=== PATIENT | male | born 1985 | race Caucasian/White ===

== ENCOUNTER 2018-11-20 11:17 | Inpatient (IN) | payer MEDICAID ==
[~2018-11-20] VITALS: Ht 167.6 cm; Wt 80.0 kg
[2018-11-20] MEDS ORDERED: morphine 4 MG/ML VIAL IV STA ×2 (11:35→13:28)
[2018-11-20] MEDS ORDERED: SOD CHLORIDE 0.9% 1,000 ML IV STA (11:35)
[2018-11-20] MEDS ORDERED: ONDANSETRON 4 MG INJ IV STA (11:35)
[2018-11-20] MEDS ORDERED: FAMOTIDINE 20 MG INJ IV STA (11:35)
[2018-11-20] MEDS ORDERED: SOD CHLORIDE 0.9% 1,000 ML IV ONE (13:50)
[2018-11-20] MEDS ORDERED: PIPER-TAZO 3.375 GM IV (PMX) 100 ML IVPB ONE (14:00)
--- NOTE | 2018-11-20 14:09 | ERD ---
ER Documentation Chief Complaint Chief Complaint AP WITH VOMITING SNCE LAST NIGHT HPI 33-year-old otherwise healthy male with 2-day history of mid abdominal pain and vomiting nonbilious nonbloody. Denies fever chills. Denies lower abdominal pain, urinary complaints. ROS All systems reviewed and are negative except as per history of present illness. Allergies Allergies: Coded Allergies: No Known Allergy (Unverified , 11/20/18) PMhx/Soc Medical and Surgical Hx: pt denies Medical Hx, pt denies Surgical Hx Hx Alcohol Use: No Hx Substance Use: No Hx Tobacco Use: No Physical Exam Vitals Vital Signs Date Temp Pulse Resp B/P (MAP) Pulse Ox O2 O2 Flow FiO2 Time Delivery Rate 11/20/18 98.1 82 18 139/82 99 11:20 (101) Physical Exam Const: No acute distress. Uncomfortable due to pain. Head: Atraumatic Eyes: Normal Conjunctiva ENT: Normal External Ears, Nose and Mouth. Neck: Full range of motion. No meningismus. Resp: Clear to auscultation bilaterally Cardio: Regular rate and rhythm, no murmurs Abd: Soft, no saskia tenderness at McBurney's point no Rapp sign. Negative Rovsing's. Mid abdominal tenderness without rebound or masses or patient has difficulty ablating due to pain.., non distended. Normal bowel sounds Skin: No petechiae or rashes Back: No midline or flank tenderness Ext: No cyanosis, or edema Neur: Awake and alert Psych: Normal Mood and Affect Result Diagram: 11/20/18 1147 11/20/18 1147 Results 24 hrs Laboratory Tests Test 11/20/18 11:47 White Blood Count 16.7 10^3/ul Red Blood Count 4.94 10^6/ul Hemoglobin 15.9 g/dl Hematocrit 44.4 % Mean Corpuscular Volume 89.9 fl Mean Corpuscular Hemoglobin 32.2 pg Mean Corpuscular Hemoglobin Concent 35.8 g/dl Red Cell Distribution Width 11.1 % Platelet Count 217 10^3/UL Mean Platelet Volume 12.8 fl Immature Granulocytes % 0.400 % Neutrophils % 91.5 % Lymphocytes % 5.2 % Monocytes % 2.8 % Eosinophils % 0.0 % Basophils % 0.1 % Nucleated Red Blood Cells % 0.0 /100WBC Immature Granulocytes # 0.060 10^3/ul Neutrophils # 15.3 10^3/ul Lymphocytes # 0.9 10^3/ul Monocytes # 0.5 10^3/ul Eosinophils # 0.0 10^3/ul Basophils # 0.0 10^3/ul Nucleated Red Blood Cells # 0.0 10^3/ul Urine Color YELLOW Urine Clarity SLIGHTLY CLOUDY Urine pH 5.0 Urine Specific [place] 1.025 Urine Ketones TRACE mg/dL Urine Nitrite NEGATIVE mg/dL Urine Bilirubin NEGATIVE mg/dL Urine Urobilinogen NEGATIVE mg/dL Urine Leukocyte Esterase NEGATIVE Marcy/ul Urine Microscopic RBC 2 /HPF Urine Microscopic WBC 3 /HPF Urine Mucus FEW /HPF Urine Hemoglobin NEGATIVE mg/dL Urine Glucose 1+ mg/dL Urine Total Protein 1+ mg/dl Sodium Level 142 mmol/L Potassium Level 4.2 mmol/L Chloride Level 99 mmol/L Carbon Dioxide Level 27 mmol/L Anion Gap 16 Blood Urea Nitrogen 14 mg/dl Creatinine 0.82 mg/dl Est Glomerular Filtrat Rate mL/min > 60 mL/min Glucose Level 165 mg/dl Calcium Level 9.7 mg/dl Total Bilirubin 0.6 mg/dl Direct Bilirubin 0.00 mg/dl Indirect Bilirubin 0.6 mg/dl Aspartate Amino Transf (AST/SGOT) 82 IU/L Alanine Aminotransferase (ALT/SGPT) 207 IU/L Alkaline Phosphatase 95 IU/L Total Protein 8.3 g/dl Albumin 4.5 g/dl Globulin 3.80 g/dl Albumin/Globulin Ratio 1.18 Lipase 52 U/L Current Medications Medications Dose Sig/Erasmo Start Time Status Last (Trade) Ordered Route PRN Stop Time Admin Dose Reason Admin Sodium 1,000 ml @ Q1H STAT 11/20/18 DC 11/20/18 Chloride 1,000 mls/hr IV 11:35 11:53 11/20/18 12:34 Morphine 4 mg ONCE STAT 11/20/18 DC 11/20/18 Sulfate IV 11:35 11:53 (morphine) 11/20/18 11:36 Ondansetron 4 mg ONCE STAT 11/20/18 DC 11/20/18 HCl (Zofran IV 11:35 11:53 Inj) 11/20/18 11:36 Famotidine 20 mg ONCE STAT 11/20/18 DC 11/20/18 (Pepcid Iv) IV 11:35 11:53 11/20/18 11:36 Morphine 4 mg ONCE STAT 11/20/18 DC 11/20/18 Sulfate IV 13:28 13:32 (morphine) 11/20/18 13:29 Piperacillin 100 ml @ ONCE ONCE 11/20/18 11/20/18 Sod/ 200 mls/hr IVPB 14:00 13:56 Tazobactam 11/20/18 14:29 Sod Sodium 1,000 ml @ Q0M ONCE 11/20/18 DC 11/20/18 Chloride 0 mls/hr IV 13:50 13:56 11/20/18 13:51 Procedures/MDM IV was obtained. Patient has leukocytosis of 16.7. CMP and lipase normal. Patient given morphine 4 mg IV, Zofran 4 mg IV, Pepcid 20 mg IV 1 L normal saline IV. Patient had recurrent pain and given additional morphine additional 1 L normal saline after CT as well. CT abdomen pelvis noncontrast shows dilated appendix with periappendiceal fat stranding without evidence of perforation or abscess. Patient was given Zosyn 3.375 g IV. Patient presents with 2-day history of vomiting abdominal pain and signs of appendicitis by CT. Arrangements will be made for panel admission and general surgery evaluation as an inpatient. Patient otherwise stable throughout the ER course. Departure Diagnosis: Primary Impression: Appendicitis Appendicitis type: acute appendicitis Acute appendicitis type: unspecified acute appendicitis type Qualified Codes: K35.80 - Unspecified acute appendicitis Condition: SHYANN Jones MD Nov 20, 2018 14:09
[2018-11-20] MEDS ORDERED: HYDROmorphONE 0.5 MG/0.5 ML SYG IV STA (15:20)
[2018-11-20] MEDS ORDERED: NACL 0.9% 3 ML SYG IV SCH (16:30)
[2018-11-20] MEDS ORDERED: ACETAMINOPHEN 325 MG TAB PO PRN (16:30)
[2018-11-20] MEDS ORDERED: ONDANSETRON 4 MG INJ IV PRN ×2 (16:30→22:00)
--- NOTE | 2018-11-20 17:45 | NUR ---
33 years old male , admitted from ER with diagnose of acute appendicitis. Patient is alert, oriented X4. VS stable. Complained of abdominal pain 9/10, medicated with Dilaudid IV and Zofran IV was given for nausea. Patient is ambulatory. Skin assessment done dry and intact, admission photos was taken. Heplock on RAC #[id number]. Keep patient NPO as ordered. Seen by Dr. Pimentel at bedside. Waiting for Dr. Azar for surgical consult. Family at bedside discussed plan of care. Call light within. All needs attended.
[2018-11-20 17:59] VITALS: BP 127/81; PULSE 74; RESP 18
[2018-11-20 18:06] VITALS: Ht 167.6 cm; Wt 80.0 kg
[2018-11-20] MEDS: HYDROmorphONE 0.5 MG/0.5 ML SYG IV PRN (18:41)
--- NOTE | 2018-11-20 19:10 | HP ---
Date/Time of Note Date/Time of Note DATE: 11/20/18 TIME: 19:06 Assessment/Plan VTE Prophylaxis Pharmacological prophylaxis: heparin Lines/Catheters IV Catheter Type (from Nrsg): Peripheral IV Assessment/Plan Hospital Course 33 yo male without pmh presents with appendicitis - Zosyn until surgery - Dr Azar consulted - IVF - Pain control - NPO Result Diagram: 11/20/18 1147 11/20/18 1147 Results 24hrs Laboratory Tests Test 11/20/18 11:47 White Blood Count 16.7 H Red Blood Count 4.94 Hemoglobin 15.9 Hematocrit 44.4 Mean Corpuscular Volume 89.9 Mean Corpuscular Hemoglobin 32.2 Mean Corpuscular Hemoglobin Concent 35.8 Red Cell Distribution Width 11.1 L Platelet Count 217 Mean Platelet Volume 12.8 H Immature Granulocytes % 0.400 Neutrophils % 91.5 H Lymphocytes % 5.2 L Monocytes % 2.8 Eosinophils % 0.0 Basophils % 0.1 Nucleated Red Blood Cells % 0.0 Immature Granulocytes # 0.060 H Neutrophils # 15.3 H Lymphocytes # 0.9 Monocytes # 0.5 Eosinophils # 0.0 Basophils # 0.0 Nucleated Red Blood Cells # 0.0 Prothrombin Time 13.6 Prothrombin Time Ratio 1.1 INR International Normalized Ratio 1.03 Activated Partial Thromboplast Time 26.8 Urine Color YELLOW Urine Clarity SLIGHTLY CLOUDY A Urine pH 5.0 Urine Specific [place] 1.025 Urine Ketones TRACE A Urine Nitrite NEGATIVE Urine Bilirubin NEGATIVE Urine Urobilinogen NEGATIVE Urine Leukocyte Esterase NEGATIVE Urine Microscopic RBC 2 Urine Microscopic WBC 3 Urine Mucus FEW A Urine Hemoglobin NEGATIVE Urine Glucose 1+ H Urine Total Protein 1+ H Sodium Level 142 Potassium Level 4.2 Chloride Level 99 Carbon Dioxide Level 27 Anion Gap 16 H Blood Urea Nitrogen 14 Creatinine 0.82 Est Glomerular Filtrat Rate mL/min > 60 Glucose Level 165 Calcium Level 9.7 Total Bilirubin 0.6 Direct Bilirubin 0.00 Indirect Bilirubin 0.6 Aspartate Amino Transf (AST/SGOT) 82 H Alanine Aminotransferase (ALT/SGPT) 207 H Alkaline Phosphatase 95 Total Protein 8.3 H Albumin 4.5 Globulin 3.80 H Albumin/Globulin Ratio 1.18 Lipase 52 HPI/ROS Admit Date/Time Admit Date/Time Nov 20, 2018 at 16:19 Hx of Present Illness 33 yo male without PMH presents with 3 days of abdominal pain Patient in usual state of health until this developed. Symptoms mostly epigastr ic. Denies clear fevers he says. Had CT in ED showing appendicitis. Has been given zosyn and morphine. Feels better now PMH/Family/Social Past Medical History Medical History: no pertinent history Medications Current Medications Ondansetron HCl (Zofran Inj) 4 mg BRIDGE ORDER PRN IV NAUSEA/VOMITING Last adm inistered on 11/20/18at 18:40; Admin Dose 4 MG; Start 11/20/18 at 16:30; Stop 11/21/18 at 16:29 Acetaminophen (Tylenol Tab) 650 mg ER BRIDGE PRN PO .MILD PAIN 1-3 OR TEMP; Start 11/20/18 at 16:30; Stop 11/21/18 at 16:29 IV Flush (NS 3 ml) 3 ml PER PROTOCOL IV ; Start 11/20/18 at 16:30 Hydromorphone HCl (Dilaudid) 0.5 mg Q4H PRN IV .SEVERE PAIN 7-10 Last administered on 11/20/18at 18:41; Admin Dose 0.5 MG; Start 11/20/18 at 16:30 Piperacillin Sod/ Tazobactam Sod 100 ml @ 200 mls/hr Q8 IVPB ; Start 11/20/18 at 22:00 Coded Allergies: No Known Allergy (Unverified , 11/20/18) Past Surgical History Past Surgical Hx: no surgical history Family History Significant Family History: no pertinent family hx Social History Alcohol Use: none Smoking Status: Never smoker Drug Use: none Exam/Review of Systems Vital Signs Vitals Vital Signs Date Temp Pulse Resp B/P (MAP) Pulse Ox O2 O2 Flow FiO2 Time Delivery Rate 11/20/18 97.7 74 18 127/81 93 Room Air 17:59 (96) Exam Constitutional: alert, oriented, well developed Psych: no complaints, nl mood/affect Head: normocephalic, atraumatic Eyes: nl conjunctiva, EOMI, nl lids, nl sclera, PERRL ENMT: nl external ears & nose, nl lips & teeth, nl nasal mucosa & septum Neck: supple, non-tender Respiratory: clear to auscultation, normal air movement Cardiovascular: regular rate and rhythm, nl pulses Gastrointestinal: soft, nl liver, spleen, non-tender Musculoskeletal: nl extremities to inspection Extremities: normal pulses Neurological: FIRE WATCHER II-XII intact, nl mental status, nl speech, nl strength Skin: nl turgor; No rash or lesions Lymph: nl lymph nodes DEION JETER MD Nov 20, 2018 19:10
[2018-11-20 20:01] VITALS: BP 125/80; PULSE 88; RESP 18
[2018-11-20] MEDS: PIPER-TAZO 3.375 GM IV (PMX) 100 ML IVPB SCH (21:41)
[2018-11-21] VITALS (18 sets, daily range): BP systolic 109–170; BP diastolic 69–91; PULSE 60–91; RESP 9–20
[2018-11-21] MEDS: PIPER-TAZO 3.375 GM IV (PMX) 100 ML IVPB SCH ×2 (05:26→13:39)
--- NOTE | 2018-11-21 06:08 | NUR ---
EOSS: Patient remains stable. Denies any pain this shift. No complains of N/V. Patient kept NPO since midnight. No other complains at this time, patient is scheduled to have procedure this AM at 0730. Consent is ready but patient wants to sign consent at the O.R. Will endorse to morning nurse for continuity of care.
[2018-11-21] MEDS ORDERED: DESFLURANE 15 MIN ONE (07:00)
--- NOTE | 2018-11-21 07:05 | NUR ---
RN Notes: Patient picked up by transport going to O.R. accompanied by partner. No complaints.
--- NOTE | 2018-11-21 07:27 | PREAC ---
Date/Time of Note Date/Time of Note DATE: 11/21/18 TIME: 07: Anesthesia Eval and Record Evaluation Time Pre-Procedure Interview DATE: 11/21/18 TIME: 07:26 Age 33 Sex male NPO: 8 hrs Preoperative diagnosis appendicitis Planned procedure Lap Appy Past Medical History Past Medical History: Includes GI: Obesity Surgery & Anesthesia Issues No known issue Meds Anticoagulation: No Beta Robert within 24 hr: No Reason Beta Robert not given: Pt. not on B-Robert Current Medications Ondansetron HCl (Zofran Inj) 4 mg BRIDGE ORDER PRN IV NAUSEA/VOMITING Last administered on 11/20/18at 18:40; Admin Dose 4 MG; Start 11/20/18 at 16:30; Stop 11/21/18 at 16:29 Acetaminophen (Tylenol Tab) 650 mg ER BRIDGE PRN PO .MILD PAIN 1-3 OR TEMP; Start 11/20/18 at 16:30; Stop 11/21/18 at 16:29 IV Flush (NS 3 ml) 3 ml PER PROTOCOL IV ; Start 11/20/18 at 16:30 Hydromorphone HCl (Dilaudid) 0.5 mg Q4H PRN IV .SEVERE PAIN 7-10 Last administered on 11/20/18at 18:41; Admin Dose 0.5 MG; Start 11/20/18 at 16:30 Piperacillin Sod/ Tazobactam Sod 100 ml @ 200 mls/hr Q8 IVPB Last administered on 11/21/18at 05:26; Admin Dose 200 MLS/HR; Start 11/20/18 at 22:00 Ondansetron HCl (Zofran Inj) 4 mg Q4H PRN IV NAUSEA AND/OR VOMITING; Start 11/20/18 at 22:00 Meds reviewed: Yes Allergies Coded Allergies: No Known Allergy (Unverified , 11/20/18) Allergies Reviewed: Yes Labs/Studies Labs Reviewed: Reviewed by anesthesiologist Result Diagram: 11/21/1842511/21/18425 Laboratory Tests 11/21/18 04:26 test: Negative Studies: ECG Pre-procedure Exam Last vitals Vital Signs Date Temp Pulse Resp B/P (MAP) Pulse Ox O2 O2 Flow FiO2 Time Delivery Rate 11/21/18 98.4 65 18 109/69 97 02:19 (82) 11/20/18 Room Air 17:59 Airway: Adequate mouth opening, Adequate thyromental dist Mallampati: Mallampati II Teeth: Normal Lung: Normal Heart: Normal ASA Physical Status ASA physical status: 2 Emergency: None Planned Anesthetic General/MAC: ETT Nerve block: TAP (bilateral) Pre-operative Attestations Prior to commencing anesthesia and surgery, the patient was re-evaluated, there was verification of: *The patient's identity *The results of appropriate recent lab work and preoperative vital signs *The above evaluation not changing prior to induction *Anesthetic plan, risk benefits, alternative and complications discussed with patient/family; questions answered; patient/family understands, accepts and wishes to proceed. ASHOK RONDON Nov 21, 2018 07:27
[2018-11-21] MEDS ORDERED: DIPHENHYDRAMINE 50 MG INJ IV PRN (07:30)
[2018-11-21] MEDS ORDERED: OXYCODONE/ACETAMINOPHEN (5/325) TAB PO PRN ×3 (07:30→09:00)
[2018-11-21] MEDS ORDERED: METOCLOPRAMIDE 10 MG INJ IV PRN (07:30)
[2018-11-21] MEDS ORDERED: ONDANSETRON 4 MG INJ IV PRN ×2 (07:30→09:00)
[2018-11-21] MEDS ORDERED: MEPERIDINE 25 MG INJ IV PRN (07:30)
[2018-11-21] MEDS ORDERED: ALBUTEROL 0.083% (NEB) 2.5 MG/3 ML AMP HHN PRN (07:30)
[2018-11-21] MEDS ORDERED: FENTAnyl 50 MCG/ML VIAL IV PRN ×2 (07:30)
[2018-11-21] MEDS ORDERED: HYDROmorphONE 1 MG/5 ML IV SYRINGE IV PRN ×2 (07:30)
--- NOTE | 2018-11-21 07:35 | CONS ---
Assessment/Plan Assessment/Plan Assessment/Plan (Daily) Acute appendicitis Plan: Laparoscopic appendectomy, possible open. I have discussed the procedure, outcomes, indications, alternatives and risks in detail to the patient and who have an excellent understanding of the nature of his situation and agreed to the proposed plan of therapy as outlined. Consultation Date/Type/Reason Admit Date/Time Nov 20, 2018 at 16:19 Date of Consultation: Nov 21, 2018 Type of Consult General surgery Reason for Consultation Acute appendicitis Date/Time of Note DATE: 11/21/18 TIME: 07:33 Hx of Present Illness Patient is an otherwise healthy 33-year-old male who presents with a 3-day history of nonspecific abdominal pain which then localized to the right lower quadrant. In the emergency room he was noted to have a tender right lower quadrant, an elevated white blood cell count, and a CT compatible with acute appendicitis. He has had no systemic symptoms. He has had no previous hospitalizations or illnesses. Constitutional: no complaints Eyes: no complaints ENT: no complaints Respiratory: no complaints Cardiovascular: no complaints Gastrointestinal: pain (Right lower quadrant) Genitourinary: no complaints Musculoskeletal: no complaints Skin: no complaints Neurologic: no complaints Endocrine: no complaints Past Medical History Medical History: no pertinent history Medications Current Medications Ondansetron HCl (Zofran Inj) 4 mg BRIDGE ORDER PRN IV NAUSEA/VOMITING Last administered on 11/20/18at 18:40; Admin Dose 4 MG; Start 11/20/18 at 16:30; Stop 11/21/18 at 16:29 Acetaminophen (Tylenol Tab) 650 mg ER BRIDGE PRN PO .MILD PAIN 1-3 OR TEMP; Start 11/20/18 at 16:30; Stop 11/21/18 at 16:29 IV Flush (NS 3 ml) 3 ml PER PROTOCOL IV ; Start 11/20/18 at 16:30 Hydromorphone HCl (Dilaudid) 0.5 mg Q4H PRN IV .SEVERE PAIN 7-10 Last administered on 11/20/18at 18:41; Admin Dose 0.5 MG; Start 11/20/18 at 16:30 Piperacillin Sod/ Tazobactam Sod 100 ml @ 200 mls/hr Q8 IVPB Last administered on 11/21/18at 05:26; Admin Dose 200 MLS/HR; Start 11/20/18 at 22:00 Ondansetron HCl (Zofran Inj) 4 mg Q4H PRN IV NAUSEA AND/OR VOMITING; Start 11/20/18 at 22:00 Hydromorphone HCl (Dilaudid) 0.2 mg PACU PRN IV MILD PAIN 1-3; Start 11/21/18 at 07:30; Status UNV Hydromorphone HCl (Dilaudid) 0.4 mg PACU PRN IV MOD PAIN 4-6; Start 11/21/18 at 07:30; Status UNV Hydromorphone HCl (Dilaudid) 0.6 mg PACU PRN IV SEVERE PAIN 7-10; Start 11/21/18 at 07:30; Status UNV Fentanyl (Sublimaze) 25 mcg PACU ORDER PRN IV MILD PAIN 1-3; Start 11/21/18 at 07:30; Status UNV Fentanyl (Sublimaze) 50 mcg PACU ORDER PRN IV MOD PAIN 4-6; Start 11/21/18 at 07:30; Status UNV Oxycodone/ Acetaminophen (Percocet (5/ 325)) 1 tab PACU ORDER PRN PO .PAIN 1-5; Start 11/21/18 at 07:30; Status UNV Ondansetron HCl (Zofran Inj) 4 mg PACU ORDER PRN IV NAUSEA/VOMITING; Start 11/21/18 at 07:30; Status UNV Metoclopramide HCl (Reglan) 10 mg PACU ORDER PRN IV NAUSEA/VOMITING; Start 11/21/18 at 07:30; Status UNV Albuterol (Proventil 0.083% (Neb)) 2.5 mg PACU ORDER PRN HHN .WHEEZING; Start 11/21/18 at 07:30; Status UNV Meperidine HCl (Demerol) 25 mg PACU ORDER PRN IV .RIGORS; Start 11/21/18 at 07:30; Status UNV Diphenhydramine HCl (Benadryl) 25 mg PACU ORDER PRN IV .PRURITUS; Start 11/21/18 at 07:30; Status UNV Allergies: Coded Allergies: No Known Allergy (Unverified , 11/20/18) Past Surgical History Past Surgical Hx: no surgical history Social History Alcohol Use: none Smoking Status: Never smoker Drug Use: none Exam/Review of Systems Exam Vitals Vital Signs Date Temp Pulse Resp B/P (MAP) Pulse Ox O2 O2 Flow FiO2 Time Delivery Rate 11/21/18 98.4 65 18 109/69 97 02:19 (82) 11/20/18 Room Air 17:59 Intake and Output 11/20/18 11/20/18 11/21/18 1515:00 23:00 07:00 IntakeIntake Total 2100 ml 100 ml 100 ml BalanceBalance 2100 ml 100 ml 100 ml Constitutional: alert, oriented Psych: no complaints Head: normocephalic Eyes: nl conjunctiva ENMT: nl external ears & nose Neck: supple Respiratory: clear to auscultation Cardiovascular: regular rate and rhythm Gastrointestinal: tender (Tender right lower quadrant with guarding but no rebound) Musculoskeletal: nl extremities to inspection Extremities: normal pulses Neurological: PROOFSHEET CORRECTOR II-XII intact Skin: nl turgor Results Result Diagram: 11/21/18 0426 11/21/18 0426 Results 24hrs Laboratory Tests Test 11/20/18 11:47 11/21/18 04:26 White Blood Count 16.7 H 13.5 H Red Blood Count 4.94 4.40 L Hemoglobin 15.9 14.4 Hematocrit 44.4 39.9 L Mean Corpuscular Volume 89.9 90.7 Mean Corpuscular Hemoglobin 32.2 32.7 Mean Corpuscular Hemoglobin Concent 35.8 36.1 Red Cell Distribution Width 11.1 L 11.6 Platelet Count 217 179 Mean Platelet Volume 12.8 H 13.3 H Immature Granulocytes % 0.400 0.400 Neutrophils % 91.5 H 81.6 H Lymphocytes % 5.2 L 12.8 L Monocytes % 2.8 4.7 Eosinophils % 0.0 0.3 Basophils % 0.1 0.2 Nucleated Red Blood Cells % 0.0 0.0 Immature Granulocytes # 0.060 H 0.060 H Neutrophils # 15.3 H 11.0 H Lymphocytes # 0.9 1.7 Monocytes # 0.5 0.6 Eosinophils # 0.0 0.0 Basophils # 0.0 0.0 Nucleated Red Blood Cells # 0.0 0.0 Prothrombin Time 13.6 Prothrombin Time Ratio 1.1 INR International Normalized Ratio 1.03 Activated Partial Thromboplast Time 26.8 Urine Color YELLOW Urine Clarity SLIGHTLY CLOUDY A Urine pH 5.0 Urine Specific [place] 1.025 Urine Ketones TRACE A Urine Nitrite NEGATIVE Urine Bilirubin NEGATIVE Urine Urobilinogen NEGATIVE Urine Leukocyte Esterase NEGATIVE Urine Microscopic RBC 2 Urine Microscopic WBC 3 Urine Mucus FEW A Urine Hemoglobin NEGATIVE Urine Glucose 1+ H Urine Total Protein 1+ H Sodium Level 142 142 Potassium Level 4.2 3.6 Chloride Level 99 104 Carbon Dioxide Level 27 26 Anion Gap 16 H 12 Blood Urea Nitrogen 14 10 Creatinine 0.82 0.79 Est Glomerular Filtrat Rate mL/min > 60 > 60 Glucose Level 165 116 # Calcium Level 9.7 9.3 Total Bilirubin 0.6 0.6 Direct Bilirubin 0.00 0.00 Indirect Bilirubin 0.6 0.6 Aspartate Amino Transf (AST/SGOT) 82 H 45 Alanine Aminotransferase (ALT/SGPT) 207 H 133 H Alkaline Phosphatase 95 79 Total Protein 8.3 H 7.0 # Albumin 4.5 3.8 Globulin 3.80 H 3.20 Albumin/Globulin Ratio 1.18 1.18 Lipase 52 Hemoglobin A1c 5.9 Medications Medication Current Medications Ondansetron HCl (Zofran Inj) 4 mg BRIDGE ORDER PRN IV NAUSEA/VOMITING Last administered on 11/20/18at 18:40; Admin Dose 4 MG; Start 11/20/18 at 16:30; Stop 11/21/18 at 16:29 Acetaminophen (Tylenol Tab) 650 mg ER BRIDGE PRN PO .MILD PAIN 1-3 OR TEMP; Start 11/20/18 at 16:30; Stop 11/21/18 at 16:29 IV Flush (NS 3 ml) 3 ml PER PROTOCOL IV ; Start 11/20/18 at 16:30 Hydromorphone HCl (Dilaudid) 0.5 mg Q4H PRN IV .SEVERE PAIN 7-10 Last administered on 11/20/18at 18:41; Admin Dose 0.5 MG; Start 11/20/18 at 16:30 Piperacillin Sod/ Tazobactam Sod 100 ml @ 200 mls/hr Q8 IVPB Last administered on 11/21/18at 05:26; Admin Dose 200 MLS/HR; Start 11/20/18 at 22:00 Ondansetron HCl (Zofran Inj) 4 mg Q4H PRN IV NAUSEA AND/OR VOMITING; Start 11/20/18 at 22:00 Hydromorphone HCl (Dilaudid) 0.2 mg PACU PRN IV MILD PAIN 1-3; Start 11/21/18 at 07:30; Status UNV Hydromorphone HCl (Dilaudid) 0.4 mg PACU PRN IV MOD PAIN 4-6; Start 11/21/18 at 07:30; Status UNV Hydromorphone HCl (Dilaudid) 0.6 mg PACU PRN IV SEVERE PAIN 7-10; Start 11/21/18 at 07:30; Status UNV Fentanyl (Sublimaze) 25 mcg PACU ORDER PRN IV MILD PAIN 1-3; Start 11/21/18 at 07:30; Status UNV Fentanyl (Sublimaze) 50 mcg PACU ORDER PRN IV MOD PAIN 4-6; Start 11/21/18 at 07:30; Status UNV Oxycodone/ Acetaminophen (Percocet (5/ 325)) 1 tab PACU ORDER PRN PO .PAIN 1-5; Start 11/21/18 at 07:30; Status UNV Ondansetron HCl (Zofran Inj) 4 mg PACU ORDER PRN IV NAUSEA/VOMITING; Start 11/21/18 at 07:30; Status UNV Metoclopramide HCl (Reglan) 10 mg PACU ORDER PRN IV NAUSEA/VOMITING; Start 11/21/18 at 07:30; Status UNV Albuterol (Proventil 0.083% (Neb)) 2.5 mg PACU ORDER PRN HHN .WHEEZING; Start 11/21/18 at 07:30; Status UNV Meperidine HCl (Demerol) 25 mg PACU ORDER PRN IV .RIGORS; Start 11/21/18 at 07:30; Status UNV Diphenhydramine HCl (Benadryl) 25 mg PACU ORDER PRN IV .PRURITUS; Start 11/21/18 at 07:30; Status UNV JACEK DE SANTIAGO MD Nov 21, 2018 07:35
[2018-11-21] MEDS ORDERED: FENTAnyl 50 MCG/ML VIAL ONE (07:44)
[2018-11-21] MEDS ORDERED: ROPIVACAINE 0.5 % 30 ML VIAL ONE (07:44)
[2018-11-21] MEDS ORDERED: PROPOFOL 20 ML ONE (08:25)
[2018-11-21] MEDS ORDERED: ROCURONIUM 50 MG INJ ONE (08:25)
[2018-11-21] MEDS ORDERED: NEOSTIGMINE 3 MG/3 ML SYRINGE ONE (08:25)
[2018-11-21] MEDS ORDERED: LIDOCAINE 100 MG SYRINGE ONE (08:25)
[2018-11-21] MEDS ORDERED: CEFAZOLIN 1 GM INJ ONE (08:25)
[2018-11-21] MEDS ORDERED: GLYCOPYRROLATE 0.4 MG INJ ONE (08:25)
[2018-11-21] MEDS ORDERED: SUCCINYLCHOLINE CHLORIDE 100 MG/5 ML SYG IV ONE (08:25)
--- NOTE | 2018-11-21 08:40 | OPR ---
Date/Time of Note Date/Time of Note DATE: 11/21/18 TIME: 08:36 Operative Report Procedure Date: Nov 21, 2018 Preoperative Diagnosis Acute appendicitis Postoperative Diagnosis Acute appendicitis with localized peritonitis Operation/Procedure Performed Laparoscopic appendectomy Surgeon Jacek De Santiago MD Mobile Home Technician None Anesthesia Type: general Anesthesiologist: ASHOK RONDON Estimated Blood Loss: minimal Transfusion none Specimen Appendix Grafts/Implants none Tubes/Drains None Complications none Pt Condition Post Procedure: stable Disposition: PACU Indications Acute appendicitis Procedure Description After satisfactory general endotracheal anesthesia was achieved, the abdomen was prepped and draped in the usual fashion. The abdomen was insufflated with carbon dioxide through an umbilical Veress needle to 15 mmHg pressure. The Veress needle was removed and the umbilical incision extended to 5 mm through which a 5 mm trocar was placed. A 5 mm 0 degree lens was placed, and under direct visualization a 5 mm suprapubic trocar was placed. The patient was then placed in Trendelenburg and right side up position. The camera was placed into the supra pubic port and the appendix was easily visualized and was acutely inflamed with slight localized peritonitis. Under direct visualization a 12 mm trocar was placed midway between the umbilicus and the xiphoid. A window was made in the mesoappendix through which a vascular stapler was placed across the base of the cecum, closed and fired, disconnecting the appendix from the cecum. A second firing with a vascular stapler across the mesoappendix fully freed the appendix which was placed into an Endo Catch removed via the 12 mm port site. Hemostasis was total and irrigant returned clear. 2-0 Vicryl sutures were placed at the 12 mm port site with the assistance of a raquel-close device. The abdomen was then desufflated and all trochars were removed. The fascial sutures were tied down. The skin punctures were closed with vince. Sponge and needle counts were reported as correct x2. JACEK DE SANTIAGO MD Nov 21, 2018 08:40
--- NOTE | 2018-11-21 08:40 | NUR ---
RECEIVED FROM OR VIA [facility] S/P [facility]. APPY. DRESSING TO ABD DRY AND INTACT. BANDAID DRESSING X3. IV INFUSING IN RT. AC # 20 ANGIOCATH.
[2018-11-21] MEDS ORDERED: morphine 4 MG/ML VIAL IV PRN (09:00)
[2018-11-21] MEDS: HYDROmorphONE 1 MG/5 ML IV SYRINGE IV PRN ×2 (09:07→09:21)
--- NOTE | 2018-11-21 09:11 | NUR ---
C/O PAIN 07/05. MEDICATED WITH DIL.0.4MG. X1
--- NOTE | 2018-11-21 09:20 | NUR ---
RE-MEDICATED WITH DIL.0.4MG. FOR CONT. PAIN 05/04.
--- NOTE | 2018-11-21 09:52 | NUR ---
REPORT GIVEN TO BUCK [facility]ARE. PT TRANSPORTED TO [place] [id number] AT 0952 HRS. ACCOMPANIED BY TRANSPORT IN STABLE CONDITION. BANDAID DRESSING X3 DRY AND INTACT. PAIN LEVEL 5/10. IV REMAINS PATENT.
--- NOTE | 2018-11-21 14:37 | PN ---
Date/Time of Note Date/Time of Note DATE: 11/21/18 TIME: 14:36 Assessment/Plan VTE Prophylaxis Risk score (from Ns)>0 risk: 5 SCD applied (from Ns): Yes Pharmacological prophylaxis: heparin Lines/Catheters IV Catheter Type (from Nrsg): Peripheral IV Urinary Cath still in place: No Assessment/Plan Hospital Course 33 yo male without pmh presents with appendicitis s/p appendectomy - s/p appendectomy 11/21 - dc abx - Dr Azar surgeon - Pain control discharge in AM Result Diagram: 11/21/18 0426 11/21/18 0426 Results 24hrs Laboratory Tests Test 11/21/18 04:26 White Blood Count 13.5 H Red Blood Count 4.40 L Hemoglobin 14.4 Hematocrit 39.9 L Mean Corpuscular Volume 90.7 Mean Corpuscular Hemoglobin 32.7 Mean Corpuscular Hemoglobin Concent 36.1 Red Cell Distribution Width 11.6 Platelet Count 179 Mean Platelet Volume 13.3 H Immature Granulocytes % 0.400 Neutrophils % 81.6 H Lymphocytes % 12.8 L Monocytes % 4.7 Eosinophils % 0.3 Basophils % 0.2 Nucleated Red Blood Cells % 0.0 Immature Granulocytes # 0.060 H Neutrophils # 11.0 H Lymphocytes # 1.7 Monocytes # 0.6 Eosinophils # 0.0 Basophils # 0.0 Nucleated Red Blood Cells # 0.0 Sodium Level 142 Potassium Level 3.6 Chloride Level 104 Carbon Dioxide Level 26 Anion Gap 12 Blood Urea Nitrogen 10 Creatinine 0.79 Est Glomerular Filtrat Rate mL/min > 60 Glucose Level 116 # Hemoglobin A1c 5.9 Calcium Level 9.3 Total Bilirubin 0.6 Direct Bilirubin 0.00 Indirect Bilirubin 0.6 Aspartate Amino Transf (AST/SGOT) 45 Alanine Aminotransferase (ALT/SGPT) 133 H Alkaline Phosphatase 79 Total Protein 7.0 # Albumin 3.8 Globulin 3.20 Albumin/Globulin Ratio 1.18 Subjective 24 Hr Interval Summary Free Text/Dictation Appendectomy this AM, no complications Feels well Exam/Review of Systems Exam Vitals Vital Signs Date Temp Pulse Resp B/P (MAP) Pulse Ox O2 O2 Flow FiO2 Time Delivery Rate 11/21/18 63 18 136/83 95 Room Air 12:00 (100) 11/21/18 97.9 10:05 Intake and Output 11/20/18 11/20/18 11/21/18 1515:00 23:00 07:00 IntakeIntake Total 2100 ml 100 ml 100 ml OutputOutput Total 5 ml BalanceBalance 2100 ml 100 ml 95 ml Constitutional: alert, oriented, well developed Psych: no complaints, nl mood/affect Head: normocephalic, atraumatic Eyes: nl conjunctiva, EOMI, nl lids, nl sclera, PERRL ENMT: nl external ears & nose, nl lips & teeth, nl nasal mucosa & septum Neck: supple, non-tender Respiratory: clear to auscultation, normal air movement Cardiovascular: regular rate and rhythm, nl pulses Gastrointestinal: soft, nl liver, spleen, non-tender Musculoskeletal: nl extremities to inspection, nl gait and stance Extremities: normal pulses Neurological: CLINICAL INFORMATICS PHYSICIAN II-XII intact, nl mental status, nl speech, nl strength Skin: nl turgor; No rash or lesions Lymph: nl lymph nodes Results Results 24hrs Laboratory Tests Test 11/21/18 04:26 White Blood Count 13.5 H Red Blood Count 4.40 L Hemoglobin 14.4 Hematocrit 39.9 L Mean Corpuscular Volume 90.7 Mean Corpuscular Hemoglobin 32.7 Mean Corpuscular Hemoglobin Concent 36.1 Red Cell Distribution Width 11.6 Platelet Count 179 Mean Platelet Volume 13.3 H Immature Granulocytes % 0.400 Neutrophils % 81.6 H Lymphocytes % 12.8 L Monocytes % 4.7 Eosinophils % 0.3 Basophils % 0.2 Nucleated Red Blood Cells % 0.0 Immature Granulocytes # 0.060 H Neutrophils # 11.0 H Lymphocytes # 1.7 Monocytes # 0.6 Eosinophils # 0.0 Basophils # 0.0 Nucleated Red Blood Cells # 0.0 Sodium Level 142 Potassium Level 3.6 Chloride Level 104 Carbon Dioxide Level 26 Anion Gap 12 Blood Urea Nitrogen 10 Creatinine 0.79 Est Glomerular Filtrat Rate mL/min > 60 Glucose Level 116 # Hemoglobin A1c 5.9 Calcium Level 9.3 Total Bilirubin 0.6 Direct Bilirubin 0.00 Indirect Bilirubin 0.6 Aspartate Amino Transf (AST/SGOT) 45 Alanine Aminotransferase (ALT/SGPT) 133 H Alkaline Phosphatase 79 Total Protein 7.0 # Albumin 3.8 Globulin 3.20 Albumin/Globulin Ratio 1.18 Medications Medication Current Medications Ondansetron HCl (Zofran Inj) 4 mg BRIDGE ORDER PRN IV NAUSEA/VOMITING Last administered on 11/20/18at 18:40; Admin Dose 4 MG; Start 11/20/18 at 16:30; Stop 11/21/18 at 16:29 Acetaminophen (Tylenol Tab) 650 mg ER BRIDGE PRN PO .MILD PAIN 1-3 OR TEMP; Start 11/20/18 at 16:30; Stop 11/21/18 at 16:29 IV Flush (NS 3 ml) 3 ml PER PROTOCOL IV ; Start 11/20/18 at 16:30 Hydromorphone HCl (Dilaudid) 0.5 mg Q4H PRN IV .SEVERE PAIN 7-10 Last administered on 11/20/18at 18:41; Admin Dose 0.5 MG; Start 11/20/18 at 16:30 Piperacillin Sod/ Tazobactam Sod 100 ml @ 200 mls/hr Q8 IVPB Last administered on 11/21/18at 13:39; Admin Dose 200 MLS/HR; Start 11/20/18 at 22:00 Ondansetron HCl (Zofran Inj) 4 mg Q4H PRN IV NAUSEA AND/OR VOMITING; Start 11/20/18 at 22:00 Oxycodone/ Acetaminophen (Percocet (5/ 325)) 1 tab Q4H PRN PO .MILD PAIN (1-3); Start 11/21/18 at 09:00 Oxycodone/ Acetaminophen (Percocet (5/ 325)) 2 tab Q4H PRN PO .MODERATE PAIN (4-6); Start 11/21/18 at 09:00 Morphine Sulfate (morphine) 2 mg ONCE PRN IV .SEVERE PAIN 7-10 Last administered on 11/21/18at 10:56; Admin Dose 2 MG; Start 11/21/18 at 09:00; Stop 11/21/18 at 23:00 Ondansetron HCl (Zofran Inj) 4 mg Q6H PRN IV NAUSEA/VOMITING; Start 11/21/18 at 09:00 DEION JETER MD Nov 21, 2018 14:37
[2018-11-21] MEDS: HYDROmorphONE 0.5 MG/0.5 ML SYG IV PRN (15:52)
--- NOTE | 2018-11-21 18:00 | NUR ---
End of shift summary Received pt back after lap appy at 10 am, alert awake and oriented X4. transferred to room safely, vital signs monitored q15min for first hour, q30 min for second hour. Pain medication administered prn. Pt comfortable and able to tolerate PO regular diet. Zosyn Discontinued per MD order. Possible discharge tomorrow. Will continue to monitor.
--- NOTE | 2018-11-21 19:13 | PAC ---
Date/Time of Note Date/Time of Note DATE: 11/21/18 TIME: 19:13 Post-Anesthesia Notes Post-Anesthesia Note Last documented vital signs Vital Signs Date Temp Pulse Resp B/P (MAP) Pulse Ox O2 O2 Flow FiO2 Time Delivery Rate 11/21/18 98.7 91 18 124/74 94 Room Air 14:00 (91) Activity: WNL Respiratory function: WNL Cardiovascular function: WNL Mental status: Baseline Pain reasonably controlled: Yes Hydration appropriate: Yes Nausea/Vomiting absent: Yes ASHOK RONDON Nov 21, 2018 19:13
[2018-11-22 02:00] VITALS: BP 107/71; PULSE 72; RESP 18
--- NOTE | 2018-11-22 05:36 | NUR ---
EOSS: Patient remains stable. Complained of pain x1 this shift and was medicated with Percocet 2 tabs PRN. No other complains. Patient walked around a few times. Call light is within reach. Will endorse to morning nurse for continuity of care.
[2018-11-22 07:35] VITALS: BP 109/73; PULSE 56; RESP 16
[2018-11-22] MEDS ORDERED: CEPH500C PO ×2 (09:51→09:58)
--- NOTE | 2018-11-22 09:52 | PDOCDIS ---
Discharge Instructions CONDITION [id number] Patient Condition: [id number] Stable ACTIVITY: [id number] Activity Restrictions: [id number] Slowly Increase Activity FOLLOW UP/APPOINTMENTS Follow-up Plan 1. Follow up with your regular doctor as soon as possible 2. Follow up with Dr. David Azar, general surgeon within 1 week 3. If pain returns, please return to the ED ISIS PATEL Nov 22, 2018 09:52
--- NOTE | 2018-11-22 09:55 | DS ---
Date/Time of Note Date/Time of Note DATE: 11/22/18 TIME: 09:54 Discharge Summary Admission/Discharge Info Admit Date/Time Nov 20, 2018 at 16:19 Discharge Date/Time Patient Condition: Stable Hospital Course Patient is a male with no significant past medical history who presents to [facility] for abdominal pain. Patient was diagnosed with acute appendicitis. Patient was seen by general surgeon and had uneventful laparoscopic appendectomy. Patient was monitored overnight and with improved abdominal pain, patient also states that he is eating well, urinating well as well as passing bowel movements at this time, spoke with general surgeon who stated that patient is stable for discharge to follow-up with general surgeon within 1 week. Patient will be discharged with a short course of antibiotics per general surgery recommendations. Patient feeling well and instructions given to return to the ED if pain returns or continues. Discharge diagnosis Acute appendicitis, status post laparoscopic appendectomy Abdominal pain Hypertension, secondary to pain Home Meds Active Scripts Cephalexin* (Cephalexin*) 500 Mg Capsule, 500 MG PO BID for 5 Days, #10 CAP Prov:ISIS PATEL 11/22/18 Follow-up Plan 1. Follow up with your regular doctor as soon as possible 2. Follow up with Dr. David Azar, general surgeon within 1 week 3. If pain returns, please return to the ED Primary Care Provider Care Physician No Primary Time spent on discharge: > 30 minutes ISIS PATEL Nov 22, 2018 09:55
[2018-11-22] MEDS ORDERED: CEPHALEXIN 500 MG CAP PO SCH (11:00)
--- NOTE | 2018-11-22 11:00 | NUR ---
Pt alert and oriented X4 at start of this shift, no complaint of pain, SOB, distress or discomfort. Able to ambulate independently. on regular diet. vital signs stable. Discharged home at 1100 with discharge medication list, IV removed, wrist band was cut. Instructed on care of surgical site, medication administration, and follow up with General surgeon. Provided Dr. Nissa Gonzales office address and phone number.
[2018-11-23] MEDS ORDERED: MIDAZOLAM 1 MG/ML 2 ML INJ ONE (17:59)
[2018-11-23] MEDS ORDERED: METOCLOPRAMIDE 10 MG INJ ONE (18:00)
[2018-11-23] MEDS ORDERED: PROPOFOL 20 ML ONE (18:01)
[2018-11-23] MEDS ORDERED: FENTAnyl 50 MCG/ML VIAL ONE ×2 (18:01→18:26)
[2018-11-23] MEDS ORDERED: ONDANSETRON 4 MG INJ ONE (18:10)
[2018-11-23] MEDS ORDERED: CEFAZOLIN 1 GM INJ ONE (18:25)
== END 2018-11-22 11:20 | disposition home or self-care (01) | DRG 343 ==
LOC: FTE 11:17 → EDSEX 11:17 → 2NE 16:19
PROVIDERS: ADMIT Internal Medicine; ATTEND Internal Medicine
PROC: 0DTJ4ZZ Resection of Appendix, Percutaneous Endoscopic Approach (ICD-10-PCS; principal; 2018-11-21 07:30)
DX: K35.30 Acute appendicitis with localized peritonitis, without perforation or gangrene (principal); I10 Essential (primary) hypertension; G89.18 Other acute postprocedural pain
CPT/HCPCS: 36415; 71045; 74176; 80053; 81001; 83036; 83690; 85025; 85610; 85730; 88304; 96361; 96365; 96375; 96376; J0690; J1170; J2001; J2250; J2270; J2405; J2543; J2710; J2765; J2795; J3010; J7030